=== PATIENT | male | born 1970 | race African-American/Black ===

== ENCOUNTER 2021-01-27 05:08 | Day surgery (SDC) | payer OTHER ==
[2021-01-26 11:25] VITALS: BMI 28.8
[2021-01-27 12:11] VITALS: TEMP 97.6
[2021-01-27 12:45] VITALS: BP 124/78; PULSE 56
== END 2021-01-27 13:00 | disposition home or self-care (01) ==
LOC: JASU-ENDO 05:08
PROVIDERS: ATTEND Internal Medicine Gastroenterology
PROC: 0DBN8ZX Excision of Sigmoid Colon, Via Natural or Artificial Opening Endoscopic, Diagnostic (ICD-10-PCS; 2021-01-27)
PROC: 0DBP8ZX Excision of Rectum, Via Natural or Artificial Opening Endoscopic, Diagnostic (ICD-10-PCS; principal; 2021-01-27 11:00)
DX: Z12.11 Encounter for screening for malignant neoplasm of colon (principal); K64.8 Other hemorrhoids; K62.1 Rectal polyp; D12.7 Benign neoplasm of rectosigmoid junction
CPT/HCPCS: 88305-TC

== ENCOUNTER 2022-08-07 03:54 | Day surgery (SDC) | payer OTHER ==
[2022-08-03 09:12] VITALS: BMI 27.3
[2022-08-07] MEDS ORDERED: MIDAZOLAM HCL 2 MG/2 ML SINGLE DOSE VIAL ONE ×3 (08:42→09:31)
[2022-08-07 09:45] VITALS: TEMP 97.5
[2022-08-07 11:24] VITALS: BP 120/80; PULSE 64; RESP 18
== END 2022-08-07 11:45 | disposition home or self-care (01) ==
LOC: JASU-SURG 03:54
PROVIDERS: ATTEND Urology
PROC: 0TF4XZZ Fragmentation in Left Kidney Pelvis, External Approach (ICD-10-PCS; principal; 2022-08-07 08:30)
DX: N20.0 Calculus of kidney (principal)

== ENCOUNTER 2022-10-16 05:36 | Day surgery (SDC) | payer OTHER ==
[2022-10-11 16:12] VITALS: BMI 25.8
[2022-10-16] MEDS ORDERED: ONDANSETRON 4 MG/2 ML VIAL ONE (10:42)
[2022-10-16] MEDS ORDERED: MIDAZOLAM HCL 2 MG/2 ML SINGLE DOSE VIAL ONE ×2 (10:42→11:06)
[2022-10-16 14:35] VITALS: RESP 20; TEMP 97.2
[2022-10-16 14:40] VITALS: BP 122/75; PULSE 70
== END 2022-10-16 12:37 | disposition home or self-care (01) ==
LOC: JASU-SURG 05:36
PROVIDERS: ATTEND Urology
PROC: 0TF4XZZ Fragmentation in Left Kidney Pelvis, External Approach (ICD-10-PCS; principal; 2022-10-16 13:30)
DX: N20.0 Calculus of kidney (principal)